=== PATIENT | female | born 1960 | race Caucasian/White ===

== ENCOUNTER → 2024-03-05 08:54 | Outpatient (REF) | payer MEDICARE, OTHER, SELFPAY | LOC: HWRAD 08:54 | PROVIDERS: ATTENDING PHYSICIAN Family Medicine | DX: K42.9 Umbilical hernia without obstruction or gangrene (principal) | CPT/HCPCS: 76705 ==

== ENCOUNTER 2024-03-12 22:35 | Inpatient (IN) | payer MEDICARE, OTHER, SELFPAY ==
[2024-03-12] VITALS (8 sets, daily range): BP systolic 94–176; BP diastolic 63–103; BMI 25.5; BMI 25.1
[2024-03-12 17:04] LABS: % Basophils 0.7 % (0-2); % Eosinophils 0.9 % (0-6); % Immature Granulocytes 0.3 % (0-0.5); % Lymphocytes 26.9 % (20.5-51.1); % Monocytes 7.8 % (1.7-9.3); % Neutrophils 63.4 % (42.2-75.2); Absolute Eosinophils 0.1 10^3/uL (0-0.7); Absolute Lymphocytes 1.6 10^3/uL (1.2-3.4); Absolute Monocytes 0.5 10^3/uL (0.1-0.6); Absolute Neutrophils 3.7 10^3/uL (1.4-6.5); Hematocrit 27.4 % (37.0-47.0); Hemoglobin 8.4 g/dL (12.0-16.0); Mean Corp Hgb Conc. 30.7 g/dL (33.0-37.0); Mean Corpuscular Hgb 25.8 pg (27.0-31.0); Nucleated Red Blood Cells % 0 %; Platelet Count 223 10^3/uL (130-400); Red Blood Cell Count 3.26 10^6/uL (4.20-5.40); Red Cell Dist. Width 21.2 % (11.5-14.5); White Blood Cell Count 5.8 10^3/uL (4.8-10.8)
[2024-03-12 17:22] LABS: AST (SGOT) 72 U/L (14-36); Albumin 3.2 g/dl (3.5-5.0); Alkaline Phosphatase 165 U/L (38-126); Blood Urea Nitrogen 8 mg/dl (7-17); Calcium 8.5 mg/dl (8.4-10.2); Carbon Dioxide 24 mmol/L (22-30); Chloride 105 mmol/L (98-107); Glucose 116 mg/dl (70-99); Lipase 30 U/L (23-300); Potassium 3.6 mmol/L (3.5-5.1); Sodium 135 mmol/L (135-145); Total Bilirubin 1.8 mg/dl (0.2-1.3); Total Protein 5.9 g/dl (6.3-8.2); eGFR > 60.00
[2024-03-12 17:30] LABS: NT-proBNP 344 pg/ml
[2024-03-12 17:40] LABS: ALT (SGPT) 24 U/L (0-35)
--- NOTE | 2024-03-12 19:03 | ED.GENMED ---
History of Present Illness
General
Chief Complaint: Swelling
Source: patient
Exam Limitations: none
Time Seen by Provider: 03/12/24 18:28
Travel History
Have you had any contact with someone who has COVID-19?: No
Do you have any symptoms of coronavirus? Fever > 100 degrees, chills, cough, shortness of breath, sore throat, loss of taste or smell, muscle aches, or headache?: No
History of Present Illness
History of Present Illness:
This is a 64 year old female that comes in with c/o abd ascites. States that this started over a moth ago. States that her and her had the stomach virus and they kept giving it back and forth to each other. Then about 1.5 weeks later she
started to feel better. Then her abd started to swell. She went to the PCP 4 weeks ago as her naval was pushing out and they thought this was a hernia. States that she was told to get US and she got the results last Monday. States that she was told
to go see her GI specialist and they couldn't see patient until July. States that her PCP called the IG specialist and they are going to see patient in March. However when the PCP called her he told them that her feet and she felt her arm was
swelling and she was told to come to the hospital. States that she has some abd discomfort with eating and drinking. States that she also had diarrhea but not sure if this is from her Lactulose. States that she had had dizziness and SOB. Denies any
fever, chills, chest pain, nausea, vomiting, headache, urinary burning.
Past History
Past History
ED Past Medical History: COPD, GERD, HTN, Hypercholesterolemia, Psychiatric and Other (back pain, IBS, cirrhosis, kidney stone, Herniated disc, Ascites, Iron Def anemia, )
ED Past Surgical History: Appendectomy, Orthopedic (Back surgery) and Other (Sinus surgery)
Social History
Tobacco: Former smoker
Alcohol: Former
Drug: None
Personal: Partner (Same sex)
Living: with family
Employment: Other
Family History
Family History: Other (Family history of Parkinson's and dementia)
Review of Systems
Review of Systems
All Other Systems: ROS reviewed and negative except as documented in HPI and ROS
Constitutional: Reports no symptoms; Denies fever or chills
EENT: Reports no symptoms
Respiratory: Reports trouble breathing; Denies cough
Cardiac: Denies chest pain
ABD/GI: Reports abdominal pain, diarrhea and other (Ascites); Denies nausea or vomiting
: Denies dysuria, frequency or urgency
Musculoskeletal: Reports no symptoms
Skin: Reports no symptoms
Neurological: Reports headache; Denies dizzy
Psychiatric: Reports no symptoms
Phy Exam
General Physical Exam
General Presentation: no apparent distress
General age: appears stated age
General Skin: warm and dry
General Habitus: elderly and poor hygiene
General Mental: alert
General Hydration: appears well hydrated
ENT Exam
ENT Exam: TM's normal, pharynx normal and neck supple
Eye Exam
Eye Exam: EOMI
Cardiovascular Exam
Cardiovascular Exam: regular rate/rhythm and normal peripheral pulses
Pulmonary Exam
Pulmonary Exam: no respiratory distress, no rales, chest non tender, no crackles, no rhonchi, no wheezing, no cough and decreased breath sounds (Right sided)
Gastrointestinal Exam
Gastrointestinal Exam: normal bowel sounds, non tender, soft, no organomegaly, no pulsatile mass and ascites
Musculoskeletal Exam
Musculoskeletal Exam: edema (feet and lower legs +2 pitting)
Skin Exam
Skin Exam: normal color, warm/dry, no rash and no petechia
Psychiatric Exam
Psychiatric Exam: normal mood/affect
Scores
Heart Failure Risk
Heart Failure Risk Score: Not Applicable
Course
Orders/Labs/Results
Orders:
Orders
03/12/24 16:58
Complete Blood Count/With Diff Urgent
Comprehensive Metabolic Panel Urgent
Lipase Urgent
NT-proBNP Urgent
03/12/24 19:02
US Abdomen Limited Urgent
Comment:
Reason For Exam: ascities check
03/12/24 19:06
Prothrombin Time Urgent
Troponin I Urgent
03/12/24 19:16
Electrocardiogram (*1) Urgent
Reason for Study: Shortness of Breath
EKG- Treatment ONCE
Abnormal Lab Results
03/12/24 03/12/24
16:58 19:06
RBC 3.26 L 10^6/uL
(4.20-5.40)
Hgb 8.4 L g/dL
(12.0-16.0)
Hct 27.4 L %
(37.0-47.0)
MCH 25.8 L pg
(27.0-31.0)
MCHC 30.7 L g/dL
(33.0-37.0)
RDW 21.2 H %
(11.5-14.5)
PT 19.0 H Sec
(11.4-14.6)
Creatinine 0.5 L mg/dL
(0.6-1.0)
Glucose 116 H mg/dl
(70-99)
Total Bilirubin 1.8 H mg/dl
(0.2-1.3)
AST 72 H U/L
(14-36)
Alkaline Phosphatase 165 H U/L
(38-126)
Total Protein 5.9 L g/dl
(6.3-8.2)
Albumin 3.2 L g/dl
(3.5-5.0)
03/12/24 16:58
03/12/24 16:58
H/H low. Glucose nonfasting. Total valdez elevation, AST elevation ( 45 in 2022), Alk phos elevation. Total protein slightly low. Albumin slightly low. PRo-BNP 344, Lipase 30, Troponin <0.012, Pt 19.0, INR, 1.61
Vital Signs
Initial and Last Documented VS:
Initial Vital Signs
Temp Pulse Resp BP Pulse Ox
97.4 F 100 20 176/86 100
03/12/24 16:45 03/12/24 16:45 03/12/24 16:45 03/12/24 16:45 03/12/24 16:45
Last Documented Vital Signs
Temp Pulse Resp BP Pulse Ox
97.4 F 92 18 125/63 97
03/12/24 16:45 03/12/24 19:45 03/12/24 19:45 03/12/24 19:00 03/12/24 19:45
MDM/Problems Addressed
Differential Diagnosis Includes:
Ascites,
MDM/Problems Addressed:
This is a 64 year old female that comes in with c/o abd swelling and not swelling in the feet and lower legs.
Will get labs, US limited and chest X-ray
Chronic conditions affecting care: Other (Ascites, )
Acute Exacerbation and/or Progression of Chronic Illness: Other (Ascites)
*Radiology
Radiology exam reviewed: radiology read reviewed (US-large volume ascites. Severe hepatic cirrhosis)
*Pulse Oximetry
Patient hypoxic: no
*Tours Hostess Interpretation
Rate: tachycardiac
Heart Rate: 104
Rhythm: sinus arrhythmia
*Critical Care Note
Total Time (30-74mins, 75-104mins- exclusive of procedures): Not Applicable
ED Attending Note
-
Portions of this chart may have been created with voice recognition software.� Occasional wrong word or��sound alike� substitutions may have occurred due to the inherent limitations of voice recognition software.
Discharge Plan
Departure
Patient Disposition: Admit
Date of Disposition: 03/12/24
Time of Disposition: 21:48
Admit to: Med/Surg
Presentation/result/management discussed w/ accepting MD/DO: Hospitalist
Patient with high blood pressure during this ER visit?: Yes
Condition: Good
Covid-19: Not Applicable
Discharge Problem:
Abdominal ascites, SOB (shortness of breath)
Prescriptions:
No Action
Epidiolex 1 UNIT solution
5 puff inhalation TIDPRN PRN (Reason: PAIN)
Patient Comments:
03/14/2019 [phone]. PT USES VAPE PEN AND CARTRIDGE
midodrine 5 MG tablet
5 mg PO DAILY
Xifaxan 550 MG tablet
550 mg PO BID
lactulose
30 ml PO TID
fluoxetine 40 mg capsule
40 mg PO DAILY
Hold Instructions: can affect your EKG, discuss restarting with cardiology
carvedilol 6.25 mg tablet
6.25 mg PO BID
Hold Instructions: discuss restarting with cardiology
donepezil 5 mg tablet
10 mg PO HS
trazodone 50 mg tablet
50 mg PO HS
Hold Instructions: discuss restarting with your doctor
tizanidine 4 mg tablet
4 mg PO BID
Patient Comments:
06/30/23: pt taking twice daily scheduled.
methylphenidate HCl 10 mg tablet
10 mg PO TID
potassium citrate 10 mEq (1,080 mg) tablet extended release
10 meq PO BID
Hold Instructions: hold while holding your HCTZ
omeprazole 20 mg capsule,delayed release(DR/EC)
20 mg PO DAILY
oxycodone 5 mg tablet
5 mg PO TID
Patient Comments:
06/30/23: patient taking TID, not QID
hydrochlorothiazide 12.5 mg tablet
12.5 mg PO BID
Hold Instructions: discuss restarting with cardiology
lurasidone 60 mg tablet
60 mg PO HS
Movantik 25 mg tablet
25 mg PO DAILY
buprenorphine HCl [Belbuca] 600 mcg film
600 mcg BUCCAL BID
Referrals:
Claudia Green PA [Family Provider] -
Interventions
Interventions:
*Risk Screen - Suicide Last Done: 03/12/24 16:45
*General Assessment Last Done: 03/12/24 16:45
*Neglect/Abuse Screening Last Done: 03/12/24 16:45
ED- Fall Risk Assessment Last Done: 03/12/24 18:31
*ED COVID-19 Vaccine History Last Done: 03/12/24 18:31
ED- Cardiac Assessment Last Done: 03/12/24 18:31
ED- Pulmonary Assessment Last Done: 03/12/24 18:31
ED-Skin Assessment Last Done: 03/12/24 18:31
Discharge Date and Time
Print Language: FRENCH
[2024-03-12 19:25] LABS: INR 1.61
[2024-03-12 19:40] LABS: Troponin I < 0.012 ng/ml
--- NOTE | 2024-03-12 22:24 | HPS.HSE ---
Family Physician
-
Family Physician: Claudia Green
Chief Complaint
-
abdominal distention
History of Present Illness
64-year-old female past medical history of alcoholic cirrhosis, esophageal varices, spinal stenosis, chronic pain, depression, COPD, GERD, presenting with abdominal ascites which started a month ago. Patient had stomach virus with vomiting and
diarrhea around a month ago which is since resolved. After the stomach was resolved she started noticing that her belly is becoming more distended since then. Over the past few days she is also noted swelling in her lower extremities and right
upper extremity. She has some shortness of breath and occasional chest tightness due to the swelling in her belly. She denies any fevers or chills. The last time she had paracentesis was 5 years ago.
Over the past month she has also had difficulty and pain with swallowing. She feels like food sometimes gets stuck in her throat and sometimes vomits up food. Difficulty occurs with solids and liquids.
Patient denies any hematemesis. She is having 1 bowel movement a day on lactulose. She denies any loose stools or dark stool or blood in the stool.
Patient did not drink alcohol or smoke in 5 years.
Medical History
Past Medical History
Past Medical History: Reports Other (alcoholic cirrhosis, esophageal varices, spinal stenosis, chronic pain, depression, COPD, GERD)
Past Surgical History: Reports Appendectomy
Social History
Tobacco: Former Smoker
Alcohol: Former
Drug: None
Family History
Family History: Not pertinent
Allergies / Home Medications
Allergies reflects when Allergies were last updated in [facility].
Home Medications with original date entered in [facility]
Allergy/Medication List:
Allergies
Allergy/AdvReac Type Severity Reaction Status Date / Time
penicillin V Allergy Unknown Verified 03/12/24 16:50
Penicillins Allergy Unknown Verified 03/12/24 16:50
Home Medications
midodrine 5 mg tablet 5 mg PO DAILY Blood Pressure 04/14/19
rifaximin 550 mg tablet (Xifaxan) 550 mg PO BID Infection 07/31/19
lactulose 10 gram/15 mL oral solution 30 ml PO TID Constipation ##0 06/29/23
buprenorphine HCl 600 mcg buccal film (Belbuca) 600 mcg buccal BID Pain 06/30/23
lurasidone 60 mg tablet 60 mg PO HS Mental Health/Anxiety 06/30/23
methylphenidate HCl 10 mg tablet 10 mg PO TID ADHD 06/30/23
naloxegol 25 mg tablet (Movantik) 25 mg PO DAILY Constipation 06/30/23
omeprazole 20 mg capsule,delayed release 20 mg PO DAILY Gastrointestinal Issue 06/30/23
oxycodone 5 mg tablet 5 mg PO Q6H Pain 06/30/23
potassium citrate 10 mEq (1,080 mg) tablet,extended release 10 meq PO DAILY Electrolyte Repletion 06/30/23
tizanidine 4 mg tablet 4 mg PO BID Muscle Spasms 06/30/23
eszopiclone 2 mg tablet 2 mg PO HS 03/12/24
Review of Systems
-
History Source: Patient
A 12 point ROS was completed and negative except as noted: Yes
Constitutional: Reports No Symptoms
EENT: Reports No Symptoms
Respiratory: Reports See HPI
Cardiac: Reports No Symptoms
Abdomen/GI: Reports See HPI
: Reports No Symptoms
Musculoskeletal: Reports No Symptoms
Skin: Reports No Symptoms
Neurological: Reports No Symptoms
Endocrine: Reports No Symptoms
Hematologic/Lymphatic: Reports No Symptoms
Psych: Reports No Symptoms
Physical Exam
Vital Signs
Vital Signs
Temp Pulse Resp BP Pulse Ox
97.4 F 96 19 128/65 95
03/12/24 16:45 03/12/24 22:00 03/12/24 22:00 03/12/24 21:00 03/12/24 22:00
Physical Exam
General: Well Developed, Well Nourished and No Apparent Distress
HEENT: NormoCephalic, Moist mucous membranes and Atraumatic
Respiratory: Clear
Cardiac: S1/S2 and Regular Rhythm; No Murmur or Rub
GI: Normal Bowel Sounds, Tender and Distended; No Organomegaly
Rectal: Deferred by Provider
Musculoskeletal: No Clubbing, No Cyanosis and No Edema
Skin: No Rash
Neuro: Nonfocal/grossly intact
Laboratory Results
-
03/12/24 16:58
03/12/24 16:58
Laboratory Results
PT 19.0 Sec (11.4-14.6) H 03/12/24 19:06
INR 1.61 03/12/24 19:06
Total Bilirubin 1.8 mg/dl (0.2-1.3) H 03/12/24 16:58
AST 72 U/L (14-36) H 03/12/24 16:58
ALT 24 U/L (0-35) 03/12/24 16:58
Alkaline Phosphatase 165 U/L (38-126) H 03/12/24 16:58
Troponin I < 0.012 ng/ml 03/12/24 19:06
Lipase 30 U/L (23-300) 03/12/24 16:58
Data Reviewed
-
Lab Data: Labs Reviewed by me
Old Records: Reviewed
Impression/Plan
-
IMPRESSION:
PLAN:
# Large volume ascites secondary to alcoholic cirrhosis
-Abdominal ultrasound shows large volume ascites
-INR 1.6
-No evidence of SBP
-IR consulted for paracentesis
-Paracentesis studies ordered
-Continue lactulose, Xifaxan
-Patient not on Lasix/spironolactone
-Check chest x-ray to evaluate for hepatic hydrothorax
-GI consulted
# Dysphagia/odynophagia possibly pharyngeal versus esophagitis
-Protonix 40 twice daily
-Prior EGD in 2020 showed grade 1 varices, mild portal hypertensive gastropathy
-GI eval
# Acute on chronic normocytic anemia
-Hemoglobin down from 11.6-8.4 over the past several months
-No evidence of nghia bleeding
History of esophageal varices
GERD
-Continue omeprazole
Spinal stenosis/chronic pain
-Continue buprenorphine, oxycodone, tizanidine
Opioid-induced constipation
-Continue Movantik
Anxiety/depression
-Continue lurasidone
ADHD
-Continue methylphenidate
Insomnia
-Continue eszopiclone
COPD
Former alcohol user
Former smoker
Full code
DVT prophylaxis�SCDs
Regular diet
[2024-03-12] MEDS: PROTONIX IV 40 MG IV (23:42)
[2024-03-12] MEDS: NSS (PRESERVATIVE FREE) 10 ML IV (23:43)
[2024-03-12] MEDS: ROXICODONE 5 MG PO (23:43)
--- NOTE | 2024-03-12 23:56 | PTCARENOTE ---
pt aaox3, reports abd pain d/t ascites. see jan re: pain management. pt ambulated to bed w/ cane. pt oriented to room w/ call rooney in reach.
[2024-03-13] VITALS (38 sets, daily range): BP systolic 16–144; BP diastolic 51–95
--- NOTE | 2024-03-13 05:03 | DOWNTIME ---
There was a [employer] Downtime on 03/13/2024 from 0100 to 03/13/2024 at 0439. Downtime documentation of patient's care, including medication administrations, has been reconciled in the electronic record per guidelines. Refer to the
patient's paper chart under the miscellaneous tab to see printed paper medication records and downtime forms.
[2024-03-13 05:10] LABS: % Basophils 0.2 % (0-2); % Eosinophils 2.8 % (0-6); % Immature Granulocytes 0.4 % (0-0.5); % Lymphocytes 36.1 % (20.5-51.1); % Monocytes 8.5 % (1.7-9.3); Absolute Eosinophils 0.1 10^3/uL (0-0.7); Absolute Lymphocytes 1.7 10^3/uL (1.2-3.4); Absolute Monocytes 0.4 10^3/uL (0.1-0.6); Absolute Neutrophils 2.4 10^3/uL (1.4-6.5); Hematocrit 22.3 % (37.0-47.0); Mean Corpuscular Hgb 25.3 pg (27.0-31.0); Mean Corpuscular Volume 84.2 fL (81.0-99.0); Mean Platelet Volume 10.4 fL (7.4-10.4); Nucleated Red Blood Cells % 0 %; Platelet Count 147 10^3/uL (130-400); Red Blood Cell Count 2.65 10^6/uL (4.20-5.40); Red Cell Dist. Width 21.1 % (11.5-14.5); White Blood Cell Count 4.6 10^3/uL (4.8-10.8)
[2024-03-13] MEDS: ROXICODONE 5 MG PO ×3 (05:16→22:56)
[2024-03-13 05:28] LABS: Hemoglobin 6.7 g/dL (12.0-16.0)
[2024-03-13 05:38] LABS: ALT (SGPT) 20 U/L (0-35); AST (SGOT) 51 U/L (14-36); Albumin 2.5 g/dl (3.5-5.0); Alkaline Phosphatase 134 U/L (38-126); Blood Urea Nitrogen 8 mg/dl (7-17); Calcium 8.2 mg/dl (8.4-10.2); Carbon Dioxide 24 mmol/L (22-30); Chloride 107 mmol/L (98-107); Estimated Creatinine Clearance 67 ml/min; Glucose 80 mg/dl (70-99); Potassium 3.6 mmol/L (3.5-5.1); Sodium 134 mmol/L (135-145); Total Bilirubin 1.9 mg/dl (0.2-1.3); Total Protein 4.9 g/dl (6.3-8.2); eGFR > 60.00
--- NOTE | 2024-03-13 06:11 | W.PN.UPDATE ---
Update Note
Progress Note Update
hgb 6.7, no active bleeding, BP 121/70 HR 80. Patient seen and evaluated. Stated feeling weak, but denies any stomach pain, active bleeding, Chest pain or shortness of breath. Blood consent explained, verbalized understanding. Stat Type and screen,
Will transfuse 1 unit of blood. H/H at noon, check heme stool, GI consult in place.
--- NOTE | 2024-03-13 07:50 | W.PN.HOSP.TC ---
Today's Communication/Plan
-
N.p.o.
Furosemide
IR consult
GI consult
Transfuse
Anemia labs
Check magnesium
Assessment / Plan
Assessment / Plan
Gen-AAOx3, NAD
HEENT-NC, AT, anicteric, clear oral mm
Neck-supple
CV-reg, no M, +S1/S2
Lungs-clear B/L
Abd-soft, NT, distended abdomen with fluid wave
Ext-1+ bilateral ankle edema
Musculoskeletal-no cyanosis, clubbing
Skin-warm and dry
Neuro-grossly non-focal
Psych-calm, cooperative
Acute on chronic anemia -hemoglobin down to 6.7 this morning, 8.4 yesterday. Baseline hemoglobin unknown, hemoglobin was 11.6 in June. Etiology of acute anemia unclear, but high concern for subacute GI blood loss anemia. She does have melena.
Rectal exam not performed on admission.
Baseline chronic anemia probably related to chronic inflammation, cirrhosis, etc.
MCV is normal. Check anemia labs.
Symptomatic ascites -due to decompensated hepatic cirrhosis. Abdominal ultrasound confirms large volume ascites, severe hepatic cirrhosis. Consult IR for paracentesis. Check fluid analysis. Start diuretics. She is not on diuretics at home.
Dysphagia -solid and liquid food. Keep n.p.o., consult GI. Will need EGD, especially in light of known esophageal varices.
Alcoholic cirrhosis -continue lactulose, rifaximin. She normally follows up with Dr. Rand, however has not seen her in over a year as she was busy taking care of her at home.
Leukopenia -likely related to cirrhosis. Monitor for now.
Hyponatremia -likely due to cirrhosis. Sodium 134. Fluid restriction.
History of esophageal varices -grade 1. Noted on EGD September 2021. She is overdue for repeat EGD.
Portal hypertensive gastropathy
QT prolongation -potassium is normal. Check magnesium. QTc 495 ms on EKG.
Chronic pain syndrome/chronic opiate dependence
COPD without exacerbation
History of alcohol use disorder -has been sober for the past 5 years.
History of colon polyps
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 Last colonoscopy was September 2021. It showed nonbleeding internal hemorrhoids, diverticulosis in the sigmoid colon, 2 mm rectal polyp. Diffuse nonbleeding colonic angiodysplastic
lesions in the cecum and ascending colon. Small lipoma in the ascending colon.
Full code
Anticipated Discharge: > 48 hours
Subjective/Interval History
-
Date of Service: March 13, 2024
Patient seen and examined. Complaining of abdominal distention, sensation of fullness.
Objective Data
-
Labs:
Laboratory Results
03/13/24 03/13/24
04:58 12:05
WBC 4.6 L
Hgb 6.7 L* D Pending
Hct 22.3 L Pending
Plt Count 147 D
Sodium 134 L
Potassium 3.6
Chloride 107
Carbon Dioxide 24
BUN 8
Creatinine 0.5 L
Glucose 80
Calcium 8.2 L
Total Bilirubin 1.9 H
AST 51 H
ALT 20
Alkaline Phosphatase 134 H
Vital Signs:
Vital Signs
Temp Pulse Resp BP Pulse Ox
98.4 F 88 17 121/70 96
03/13/24 04:50 03/13/24 04:50 03/13/24 04:50 03/13/24 04:50 03/13/24 04:50
Review of Systems
-
History Source: Patient
All other systems: Reviewed and negative
[2024-03-13] MEDS: XIFAXAN PO (08:00)
[2024-03-13] MEDS: DUPHALAC/CHRONULAC PO (08:00)
--- NOTE | 2024-03-13 08:05 | PTCARENOTE ---
Patient resting in bed this morning. Seen by Dr. Grya in to see the patient. Patient to be kept NPO until seen by GI. To receive one unit of PRBC's this morning. Await GI/IR evaluation.
[2024-03-13 08:15] LABS: Reticulocyte Count 3.1 % (0.4-2.8)
[2024-03-13 08:16] LABS: Iron 40 ug/dl (37-170); Magnesium 1.8 mg/dl (1.6-2.3)
[2024-03-13 08:28] LABS: Percent Saturation 13 % (20-50); Total Iron Binding Capacity 292 ug/dl (265-497)
--- NOTE | 2024-03-13 08:44 | CON.GI ---
Consultation
-
Date/Time Consultation Requested: 03/13/24
Date/Time Consultation Performed: 03/13/24
Requesting Provider: Dr. Gray
Performing Provider: Dr. Nassar
Reason for Consultation: Decompensated cirrhosis, anemia
Medical History
Chief Complaint / HPI
Chief Complaint: Ascites, melena
History of Present Illness:
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
edema. She reports that both her and her had some self-limiting GI illness, after which she noted the worsening in abdominal distension and LE edema, which has become progessively worse over the last month. She previously had ascites requiring
paracentesis in 2019, but has not required any since that time. She reports compliance with all medications-- including lactulose, rifaximin, lasix, no longer on Coreg. Of note, she is on midodrine-- does not recall when this was started, she does
not recall being told she suffers from hypotension. She was found to be anemic on arrival with a hemoglobin of 8.4, with repeat this morning 6.7. Her previous hemoglobin was 06/30/23 was 11.6, MCV 84.2, plt 147, PT 19/INR 1.6, Na 134, K 3.6, Cl 107,
CO2 24, BUN 8/Cr. 0.5, Tbili 1.9. She reports having 'dark' stool at home, she thinks it has been black. Denies any pepto bismol or supplemental iron. She has been sober for the last 5 years. Denies any encephalopathy. Admits to 1 BM per day--
struggles with drug-induced constipation, on Movantik.
She was previously put on Coreg for secondary prophylaxis for esophageal varices, she was hospitalized in June for worsening fatigue and syncope, found to have prolonged QT interval and at that time, both her Coreg and hydrochlorothiazide were
held. Not resumed following her close follow-up with cardiology due to her her symptoms, they also mention that both buprenorphine and Latuda could also be the culprits of her prolonged QT interval.
Her last EGD was in September [address] Rand, was noted to have Grade 1 EV which were not amenable to banding, as well as PHG. She has had EGDs in the past with GAVE treated with APC, but did not require this on most recent endoscopy. She was last
banded in August 2019. Unclear if varices vs. GAVE were source of GI Bleeding at that time.
She also has a history of rectal neuroendocrine tumor on colonoscopy in 03/2021, path with extension to specimen edge of bx (2 mm rectal polyp), repeat 6 months; noted to have a few small nonbleeding AVMs in the cecum and ascending colon, given a 3
year recall, due now.
Prior GI Workup
04/2022 Abd US hepatomegaly with coarsened echotexture nodular configuration of the liver. No discrete liver lesion. No ascites. No gallstones.
08/2021 MRI AP with contrast liver cirrhosis, no liver lesions, mild splenomegaly, mild CBD dilation 10mm without stricture or filling defect.
02/19/21 CTAP IV and oral contrast revealed cirrhosis, moderate fecal material
09/[address] Rand Grade I EV not amenable to banding, PHTN gastropathy, normal duodenum. Recall 2-3yrs
01/2021 EGD Grade 1 esophageal varices, gastric antral ectasia without bleeding treated with APC, PHG. Recall 6 month.
09/13/19 EGD with Grade III EV s/p band ligation x2, PHG, 3 small AVMs with active bleeding that required APC.
03/28/19- paracentesis 5800ml removed 04/25/19- 2800 ml removed
01/20/19 Mitochondrial 2.6, SLA 2.5, LKM 1.4, hepatitis neg,
07/[address] Rand sigmoid tics, IH, 2mm rectal polyp on path hyperplastic, few nonbleeding AVMs in cecum and AC, small AC lipoma. Recall 3yrs.
03/[address] Rand IH, TI normal, melanosis coli, 4mm ascending colon tubular adenomatous polyp s/p hot snare clip and tattoo, 2mm rectal polyp on path neuroendocrine tumor grade I with extension to specimen edge of bx. Recall 6months.
11/2016- Colonoscopy multiple polyps. looping in colon, redundant colon, non-bleeding hemorrhoids, medium lipoma in distal ascending colon bx hyperplastic and tubular adenoma.
Past Medical History
Past Medical History: Arrhythmias, CHF, HTN, Hypercholesterolemia, Hypothyroidism, NIDDM, Valvular Disease and Other
Social History
Alcohol: Former
Family History
Family History: Reviewed & Not Pertinent
Allergies / Home Medications
Allergy/AdvReac Type Severity Reaction Status Date / Time
penicillin V Allergy Unknown Verified 03/12/24 16:50
Penicillins Allergy Unknown Verified 03/12/24 16:50
�Medication �Instructions �Recorded
midodrine 5 mg tablet 5 mg PO DAILY Blood Pressure 04/14/19
rifaximin 550 mg tablet (Xifaxan) 550 mg PO BID Infection 07/31/19
lactulose 10 gram/15 mL oral 30 ml PO TID Constipation ##0 06/29/23
solution
buprenorphine HCl 600 mcg buccal 600 mcg buccal BID Pain 06/30/23
film (Belbuca)
lurasidone 60 mg tablet 60 mg PO HS Mental Health/Anxiety 06/30/23
methylphenidate HCl 10 mg tablet 10 mg PO TID ADHD 06/30/23
naloxegol 25 mg tablet (Movantik) 25 mg PO DAILY Constipation 06/30/23
omeprazole 20 mg capsule,delayed 20 mg PO DAILY Gastrointestinal 06/30/23
release Issue
oxycodone 5 mg tablet 5 mg PO Q6H Pain 06/30/23
potassium citrate 10 mEq (1,080 10 meq PO DAILY Electrolyte 06/30/23
mg) tablet,extended release Repletion
tizanidine 4 mg tablet 4 mg PO BID Muscle Spasms 06/30/23
eszopiclone 2 mg tablet 2 mg PO HS 03/12/24
Review of Systems
-
All other systems: A 12 pt ROS was Negative except as stated above in HPI
Vital Signs
Temp Pulse Resp BP Pulse Ox
98.9 F 88 16 127/74 97
03/13/24 08:31 03/13/24 08:31 03/13/24 08:31 03/13/24 08:31 03/13/24 08:13
Physical Exam
Exam
General: No Apparent Distress and Comfortable
HEENT: Other (conjunctival pallor)
Respiratory: Clear and Non Labored Respirations
Cardiac: S1/S2 and Regular Rhythm
Breast: Deferred by me
GI: Soft, Non Tender and Distended
Rectal: Other (No stool in rectal vault, scant flecks of light brown stool )
Skin: Warm and Dry
Neuro: AO x 3, Nonfocal/Grossly Intact and Other (No asterixes or tongue fasciculations)
Psych: Calm
Results
WBC 4.6 10^3/uL (4.8-10.8) L 03/13/24 04:58
Hgb 6.7 g/dL (12.0-16.0) L* D 03/13/24 04:58
Hct 22.3 % (37.0-47.0) L 03/13/24 04:58
MCV 84.2 fL (81.0-99.0) 03/13/24 04:58
Plt Count 147 10^3/uL (130-400) D 03/13/24 04:58
Absolute Neuts (auto) 2.4 10^3/uL (1.4-6.5) 03/13/24 04:58
PT 19.0 Sec (11.4-14.6) H 03/12/24 19:06
INR 1.61 03/12/24 19:06
Sodium 134 mmol/L (135-145) L 03/13/24 04:58
Potassium 3.6 mmol/L (3.5-5.1) 03/13/24 04:58
Chloride 107 mmol/L (98-107) 03/13/24 04:58
Carbon Dioxide 24 mmol/L (22-30) 03/13/24 04:58
BUN 8 mg/dl (7-17) 03/13/24 04:58
Creatinine 0.5 mg/dL (0.6-1.0) L 03/13/24 04:58
Calcium 8.2 mg/dl (8.4-10.2) L 03/13/24 04:58
Total Bilirubin 1.9 mg/dl (0.2-1.3) H 03/13/24 04:58
AST 51 U/L (14-36) H 03/13/24 04:58
ALT 20 U/L (0-35) 03/13/24 04:58
Alkaline Phosphatase 134 U/L (38-126) H 03/13/24 04:58
Lipase 30 U/L (23-300) 03/12/24 16:58
Diagnostic Image Results:
Prior GI Procedures:
EGD:
Colonoscopy:
Assessment / Plan
-
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
be anemic.
#Anemia-- reports melena, though, none on rectal exam
-history of prior bleeding esophageal varices as well as GAVE, PHG, Colonic AVMs
-in setting of ascites and prior GI bleeding, recommend SBP prophylaxis-- discussed PCN allergy with pharmacy, she has tolerated cephalosporins in the past, will start on Cefepime 2g daily
-Start Octreotide gtt, no signs of active bleeding, okay for IV PPI; must be transferred to monitored bed to receive octreotide gtt, she is going to be coming down for EGD now, will plan to transfer to monitored bed if evidence of varices
-Hgb 8.4 --> 6.7, transfused, pending repeat
-maintain active T&C, 2 large bore peripheral gauge IVs
-NPO for EGD today
#Decompensated EtoH Cirrhosis c/b hepatic encephalopathy, PHG, esophageal varices, abdominal ascites
-MELD 3.0 = 18
-Ascites in 2019 requiring paracentesis, now with recurrence
-plan for IR paracentesis today-- will review ascitic fluid studies and calculate SAAG, need to rule out SBP; depending on fluid studies, may require indefinite SBP prophylaxis
-Abdominal US w/ cirrhosis, large-volume ascites-- vasculature not commented on. Need to obtain additional imaging to rule PVT
-Previously did not require diuretics-- agree with initiation of 40mg lasix; should ideally be on aladactone as well, will see how she tolerates lasix
-Continue lactulose and rifaximin
-will check AFP for HCC screening with AM labs
-no role for checking ammonia
-Daily MELD-3.0 labs
#Hx Rectal Neuroendocrine Ca
#Hx Colon polyps
-Depending on hemoglobin and findings on EGD, will discuss if inpatient evaluation is necessary vs. follow-up with Dr. Rand for surveillance colonoscopy in the outpatient setting
Data Reviewed
-
Radiology: Report Reviewed by me
Ultrasound: Report Reviewed by me
Old Records: Reviewed
-
-
Thank you for consultation and allowing me to participate in the patient's care. Please call the windows application developer GI physician during the after hours with any questions or concerns.
--- NOTE | 2024-03-13 09:30 | PTCARENOTE ---
Blood transfusing as ordered, patient transported to IR for paracentesis.
[2024-03-13 09:39] LABS: Ferritin 9.7 ng/ml (11.1-264.0)
[2024-03-13 10:10] LABS: Folate 5.7 ng/ml (2.76-20); Vitamin B12 932 pg/ml (239-931)
--- NOTE | 2024-03-13 10:46 | PTCARENOTE ---
Patient returned from IR after paracentesis. Band aid dry and intact right lateral abdomen, VSS. Blood transfused, remains NPO x meds for endoscopy.
[2024-03-13] MEDS: LASIX 40 MG PO (10:48)
[2024-03-13] MEDS: ZANAFLEX 4 MG PO (10:49)
[2024-03-13] MEDS: RITALIN 10 MG PO ×2 (10:49→16:26)
[2024-03-13] MEDS: NSS (PRESERVATIVE FREE) 10 ML IV ×2 (10:50→20:01)
[2024-03-13] MEDS: ProAmatine 5 MG PO (10:50)
[2024-03-13] MEDS: PROTONIX IV 40 MG IV ×2 (10:50→20:01)
[2024-03-13 10:55] LABS: Body Fluid Mononuclear 68.5 %; Body Fluid Polymorphonuclear 31.5 %; Body Fluid WBC 54 /CUMM
[2024-03-13 10:57] LABS: Body Fluid Second Tech AMA
[2024-03-13 11:01] LABS: Body Fluid Albumin < 1.0 g/dl; Body Fluid Amylase < 30 U/L; Body Fluid LDH < 90 U/L; Body Fluid Protein < 2.0 g/dl
[2024-03-13] MEDS: RITALIN PO (12:00)
[2024-03-13] MEDS: ROXICODONE PO (12:00)
--- NOTE | 2024-03-13 13:06 | PTCARENOTE ---
Report given to GI lab, patient sent with transport for EGD.
--- NOTE | 2024-03-13 15:41 | CM ---
Reviewed chart. Met with Mrs. Bass to review discharge plans. She states prior to admission she resides with her spouse in a two story home with steps and wheelchair ramp to enter. She states her bedroom/full bathroom is on the first floor. She
states prior to admission she was ambulating with a walker. She states she has a stair glide to get to the second floor. She has a walker, single point cane and shower chair at home. She states she has a prescription plan and uses [facility].
Will need to see her current functional level to see if she will have any skilled care needs. Medical work-up in progress. The discharge plan is to return home with [facility] when medically stable.
[2024-03-13 15:43] LABS: Hematocrit 30.7 % (37.0-47.0)
[2024-03-13] MEDS: SANDOSTATIN 500.600000000000023 MCG IV (15:44)
[2024-03-13 15:45] LABS: Hemoglobin 9.8 g/dL (12.0-16.0)
--- NOTE | 2024-03-13 16:13 | PTCARENOTE ---
Patient returned to her room after EGD. Placed on telemetry as ordered, in SR. IV sandostatin infusing as ordered via new #22 IV placed right hand. Monitoring post op VS, patient eating clear liquid tray, call rooney in reach.
[2024-03-13] MEDS: DUPHALAC/CHRONULAC 20 GRAMS PO ×2 (16:25→22:56)
[2024-03-13] MEDS: MAXIPIME 2000 MG IV ×2 (16:26→22:56)
[2024-03-13] MEDS: STERILE WATER FOR INJECTION 10 ML IV ×2 (16:26→22:56)
[2024-03-13] MEDS: FLUSH (NSS) 2 FLUSH IV (16:27)
[2024-03-13] MEDS: XIFAXAN 550 MG PO (20:00)
[2024-03-13] MEDS: ZANAFLEX PO (20:01)
[2024-03-13] MEDS: AMBIEN PO (22:56)
[2024-03-13] MEDS: LATUDA 60 MG PO (22:56)
[2024-03-14] VITALS (14 sets, daily range): BP systolic 72–129; BP diastolic 45–77
[2024-03-14] MEDS: SANDOSTATIN 500.600000000000023 MCG IV ×2 (04:30→16:58)
[2024-03-14 05:13] LABS: % Basophils 0.7 % (0-2); % Eosinophils 3.3 % (0-6); % Immature Granulocytes 0.2 % (0-0.5); % Monocytes 6.9 % (1.7-9.3); % Neutrophils 48.9 % (42.2-75.2); Absolute Eosinophils 0.1 10^3/uL (0-0.7); Absolute Lymphocytes 1.7 10^3/uL (1.2-3.4); Absolute Monocytes 0.3 10^3/uL (0.1-0.6); Absolute Neutrophils 2.1 10^3/uL (1.4-6.5); Hemoglobin 8.4 g/dL (12.0-16.0); Mean Corp Hgb Conc. 32.3 g/dL (33.0-37.0); Mean Corpuscular Volume 80.5 fL (81.0-99.0); Mean Platelet Volume 11.1 fL (7.4-10.4); Nucleated Red Blood Cells % 0 %; Platelet Count 139 10^3/uL (130-400); Red Blood Cell Count 3.23 10^6/uL (4.20-5.40); Red Cell Dist. Width 20.4 % (11.5-14.5); White Blood Cell Count 4.2 10^3/uL (4.8-10.8)
[2024-03-14] MEDS: ROXICODONE 5 MG PO ×3 (05:14→17:35)
[2024-03-14 05:35] LABS: ALT (SGPT) 19 U/L (0-35); AST (SGOT) 42 U/L (14-36); Albumin 2.3 g/dl (3.5-5.0); Alkaline Phosphatase 116 U/L (38-126); Blood Urea Nitrogen 7 mg/dl (7-17); Calcium 7.9 mg/dl (8.4-10.2); Carbon Dioxide 26 mmol/L (22-30); Chloride 105 mmol/L (98-107); Estimated Creatinine Clearance 67 ml/min; Glucose 87 mg/dl (70-99); Sodium 133 mmol/L (135-145); Total Bilirubin 2.1 mg/dl (0.2-1.3); Total Protein 4.6 g/dl (6.3-8.2); eGFR > 60.00
[2024-03-14 06:10] LABS: AFP Male/Tumor Marker 2.08 ng/ml
--- NOTE | 2024-03-14 08:09 | W.PN.HOSP.TC ---
Today's Communication/Plan
-
Advance diet
Replete potassium
Monitor hemoglobin
Octreotide, Protonix
Assessment / Plan
Assessment / Plan
Gen-AAOx3, NAD
HEENT-NC, AT, anicteric, clear oral mm
Neck-supple
CV-reg, no M, +S1/S2
Lungs-clear B/L
Abd-soft, NT, less distended today
Ext-1+ bilateral ankle edema
Musculoskeletal-no cyanosis, clubbing
Skin-warm and dry
Neuro-grossly non-focal
Psych-calm, cooperative
Acute on chronic anemia -hemoglobin improved to 8.4 after 1 unit of transfusion on 03/13. Etiology of acute anemia is likely acute blood loss anemia due to GI bleed. Bleeding portal hypertensive gastropathy noted on EGD. Monitor hemoglobin.
Octreotide infusion started 03/13. Continue IV Protonix.
She has not had a bowel movement so far in the hospital but has also not been eating.
Symptomatic ascites -due to decompensated hepatic cirrhosis. Paracentesis completed on 03/13 by IR, 4.2 L of fluid removed. No signs of SBP.
Furosemide initiated. Add spironolactone if blood pressure tolerates.
Dysphagia -suspect functional etiology. No obvious source of dysphagia noted on EGD. Advance diet today, discussed with GI.
Alcoholic cirrhosis -continue lactulose, rifaximin. She normally follows up with Dr. Rand, however has not seen her in over a year as she was busy taking care of her at home.
Leukopenia -likely related to cirrhosis. Monitor for now.
Hyponatremia -likely due to cirrhosis. Sodium 133. Fluid restriction. Check TSH.
Hypokalemia -replete orally. Magnesium 1.7.
History of esophageal varices -grade 1. Small esophageal varices noted on EGD from 03/13. Unable to be banded.
Portal hypertensive gastropathy
QT prolongation -potassium is normal. Check magnesium. QTc 495 ms on EKG.
Chronic pain syndrome/chronic opiate dependence
COPD without exacerbation
History of alcohol use disorder -has been sober for the past 5 years.
History of colon polyps
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 Last colonoscopy was September 2021. It showed nonbleeding internal hemorrhoids, diverticulosis in the sigmoid colon, 2 mm rectal polyp. Diffuse nonbleeding colonic angiodysplastic
lesions in the cecum and ascending colon. Small lipoma in the ascending colon.
Full code
Anticipated Discharge: > 48 hours
Subjective/Interval History
-
Date of Service: March 14, 2024
Patient seen and examined. No complaints today.
Objective Data
-
Labs:
Laboratory Results
03/14/24
04:40
WBC 4.2 L
Hgb 8.4 L
Hct 26.0 L
Plt Count 139
Sodium 133 L
Potassium 3.0 L
Chloride 105
Carbon Dioxide 26
BUN 7
Creatinine 0.6
Glucose 87
Calcium 7.9 L
Total Bilirubin 2.1 H
AST 42 H
ALT 19
Alkaline Phosphatase 116
Vital Signs:
Vital Signs
Temp Pulse Resp BP Pulse Ox
98.2 F 71 18 120/68 98
03/13/24 23:18 03/13/24 23:00 03/13/24 23:18 03/13/24 23:00 03/13/24 23:18
I&O
03/13/24 03/14/24 03/15/24
06:59 06:59 06:59
Intake Total 1370 / 1370
Output Total 550 / 550
Balance 820 / 820
Review of Systems
-
History Source: Patient
All other systems: Reviewed and negative
[2024-03-14 08:14] LABS: Magnesium 1.7 mg/dl (1.6-2.3)
[2024-03-14] MEDS: DUPHALAC/CHRONULAC 20 GRAMS PO ×3 (09:39→23:12)
[2024-03-14] MEDS: PROTONIX IV 40 MG IV ×2 (09:40→20:27)
[2024-03-14] MEDS: NSS (PRESERVATIVE FREE) 10 ML IV ×2 (09:42→20:27)
[2024-03-14] MEDS: ZANAFLEX 4 MG PO ×2 (09:55→20:27)
[2024-03-14] MEDS: ProAmatine 5 MG PO (09:55)
[2024-03-14] MEDS: RITALIN 10 MG PO ×3 (09:55→16:49)
[2024-03-14] MEDS: KCL 40 MEQ PO (09:56)
[2024-03-14] MEDS: LASIX 40 MG PO (09:56)
[2024-03-14] MEDS: XIFAXAN 550 MG PO ×2 (09:56→20:27)
[2024-03-14] MEDS: MAXIPIME 2000 MG IV ×2 (10:31→16:47)
[2024-03-14] MEDS: STERILE WATER FOR INJECTION 10 ML IV ×2 (10:31→16:47)
--- NOTE | 2024-03-14 12:20 | W.PN.GI.CBS2 ---
Today's Communication / Plan
-
Continue Octreotide gtt, PPI, Cefepime for SBP prophylaxis. Monitor hemoglobin. Advance diet.
Assessment / Plan
-
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
be anemic.
#Anemia-- 2/2 bleeding PHG
-s/p EGD on 03/13: actively oozing PHG in fundus treated with APC. mild nonbleeding GAVE. small grade 1 EV, nonobstructing schatzki ring, small HH
-Hgb 8.4 this morning. no episodes of bleeding overnight.
-Continue octreotide gtt day 2/3, SBP ppx day 2, PPI
-okay to advance diet, 2g salt restriction, 2L fluid restriction
#Decompensated EtoH Cirrhosis c/b hepatic encephalopathy, PHG, esophageal varices, abdominal ascites
-MELD 3.0 = 20
-Ascites in 2019 requiring paracentesis, now with recurrence; ascitic fluid study with high SAAG, low protein c/w portal HTN. No evidence of SBP. Does not meet criteria for primary SBP prophylaxis
-started on Lasix, if BP tolerates, will start on Aldactone 50 mg daily
-Abdominal US w/ cirrhosis, large-volume ascites-- vasculature not commented on. Need to obtain additional imaging to rule PVT
-Previously did not require diuretics-- agree with initiation of 40mg lasix; should ideally be on aladactone as well, will see how she
-Continue lactulose and rifaximin
-EV- grade 1 EV on EGD, not amenable to banding. Recommend reintroduction of Carvediol as outpatient to see if she tolerates it (was being used along with HCTZ, difficult to say what was causing her symptoms)
-AFP 2.08- needs repeat q6 months for HCC screening
-no role for checking ammonia
-Daily MELD-3.0 labs
#Dsphagia- functional vs. mechanical
-nonobstructing schatzki ring and small HH on EGD-- discussed with patient that would not recommend dilation given esophageal varices
-discussed lifestyle/dietary modifications, patient expressed understanding
#Hx Rectal Neuroendocrine Ca
#Hx Colon polyps
-Outpatient follow-up [facility] Dr. Rand for surveillance colonoscopy
Subjective
Subjective
Date of Service: March 14, 2024
Patient seen in follow-up this morning, reports feeling much better today. No longer having discomfort in abdomen or distension following IR paracentesis. She underwent EGD with small grade 1 EV, not amenable to banding, small schatzki ring, small
HH, oozing PHG, mild GAVE; oozing PHG in fundus treated with APC with adequate hemostasis. She is currently on PPI, Octreotide gtt and Cefepime for SBP prophylaxis.
Objective
Data Reviewed
Laboratory Data:
Laboratory Results
03/14/24 04:40
03/14/24 04:40
Laboratory Results
PT 19.0 Sec (11.4-14.6) H 03/12/24 19:06
INR 1.61 03/12/24 19:06
Magnesium 1.7 mg/dl (1.6-2.3) 03/14/24 04:40
Total Bilirubin 2.1 mg/dl (0.2-1.3) H 03/14/24 04:40
AST 42 U/L (14-36) H 03/14/24 04:40
ALT 19 U/L (0-35) 03/14/24 04:40
Alkaline Phosphatase 116 U/L (38-126) 03/14/24 04:40
Lipase 30 U/L (23-300) 03/12/24 16:58
Vital Signs and I&O:
Vital Signs
Temp Pulse Resp BP Pulse Ox
99.1 F 78 16 128/74 94
03/14/24 07:00 03/14/24 12:00 03/14/24 07:00 03/14/24 09:55 03/14/24 07:00
I&O
03/13/24 03/14/24 03/15/24
06:59 06:59 06:59
Intake Total 1370 / 1370
Output Total 550 / 550
Balance 820 / 820
Physical Exam
Physical Exam
HEENT: Anicteric and Moist mucous membranes
Cardiology: Normal Sinus Rhythm, S1 and S2
Pulmonary: Clear
GI: Soft, Distended (mild distension ), Non Tender and Normal Bowel Sounds
Extremities: No Edema
Neuro: Non Focal
No asterixes
[2024-03-14 19:00] LABS: Hepatitis C Antibody Negative (Negative)
[2024-03-14] MEDS: KCL 20 MEQ PO (20:26)
--- NOTE | 2024-03-14 21:30 | PTCARENOTE ---
Assumed care of patient at change of shift. Patient reports having a poor appetite and unable to swallow food. She had difficulty eating dinner and states 'I had to spit it out. I was gagging.' No issues w/ swallowing pills, oral Potassium given in
apple sauce. Tele remains SR. Call rooney in reach.
[2024-03-14] MEDS: AMBIEN PO (22:54)
[2024-03-14] MEDS: NSS 500 IV (23:12)
[2024-03-14] MEDS: LATUDA 60 MG PO (23:12)
[2024-03-14] MEDS: MYLICON 80 MG PO (23:12)
[2024-03-15] VITALS (16 sets, daily range): BP systolic 76–108; BP diastolic 40–69; BMI 23.8
[2024-03-15] MEDS: ROXICODONE PO (00:18)
[2024-03-15] MEDS: MAXIPIME 2000 MG IV ×3 (00:28→17:02)
[2024-03-15] MEDS: STERILE WATER FOR INJECTION 10 ML IV ×3 (00:29→17:02)
--- NOTE | 2024-03-15 01:28 | PTCARENOTE ---
@22:42 HS vitals obtained, patient laying flat in bed. Bp on right arm 72/48 and left arm BP 75/45. Manual blood pressure performed w/ a result of 76/42. Patient denies any dizziness, but does c/o a headache described as 'dull/ache'. This RN
instructed patient to remain in bed until further notice, and elevated legs. Saundra AGUIAR notified, and orders obtained/carried out for NSS 500ml--see MAR for details. Blood pressure reevaluated post IV fluid administration BP 86/40. Denies any
lightheadedness or dizziness and remains laying in bed. Call rooney in reach, and pt can make her needs known.
[2024-03-15 02:42] LABS: % Basophils 0.6 % (0-2); % Lymphocytes 33.8 % (20.5-51.1); % Monocytes 8.7 % (1.7-9.3); % Neutrophils 51.9 % (42.2-75.2); Absolute Eosinophils 0.2 10^3/uL (0-0.7); Absolute Lymphocytes 1.2 10^3/uL (1.2-3.4); Absolute Monocytes 0.3 10^3/uL (0.1-0.6); Absolute Neutrophils 1.8 10^3/uL (1.4-6.5); Hematocrit 23.2 % (37.0-47.0); Hemoglobin 7.5 g/dL (12.0-16.0); Mean Corp Hgb Conc. 32.3 g/dL (33.0-37.0); Mean Corpuscular Volume 80.6 fL (81.0-99.0); Mean Platelet Volume 10.4 fL (7.4-10.4); Nucleated Red Blood Cells % 0 %; Platelet Count 110 10^3/uL (130-400); Red Blood Cell Count 2.88 10^6/uL (4.20-5.40); White Blood Cell Count 3.4 10^3/uL (4.8-10.8)
[2024-03-15 03:05] LABS: ALT (SGPT) 17 U/L (0-35); AST (SGOT) 66 U/L (14-36); Albumin 1.8 g/dl (3.5-5.0); Alkaline Phosphatase 87 U/L (38-126); Blood Urea Nitrogen 6 mg/dl (7-17); Calcium 7.4 mg/dl (8.4-10.2); Carbon Dioxide 25 mmol/L (22-30); Chloride 102 mmol/L (98-107); Estimated Creatinine Clearance 67 ml/min; Glucose 110 mg/dl (70-99); Potassium 3.3 mmol/L (3.5-5.1); Sodium 132 mmol/L (135-145); Total Bilirubin 1.2 mg/dl (0.2-1.3); Total Protein 3.9 g/dl (6.3-8.2); eGFR > 60.00
[2024-03-15 04:18] LABS: Anisocytosis 2+; Normal RBC Morphology No
[2024-03-15 04:20] LABS: Acanthocytes 1+; Hypochromasia 1+; Ovalocytes 1+; Target Cells 1+; Tear Drop Red Blood Cells Occasional
[2024-03-15 04:22] LABS: Poikilocytosis 1+; Schistocytes Occasional
[2024-03-15] MEDS: SANDOSTATIN 500.600000000000023 MCG IV ×2 (06:14→19:01)
--- NOTE | 2024-03-15 07:50 | W.PN.HOSP.TC ---
Today's Communication/Plan
-
Out of bed to chair
Recheck CBC
Increase KCl dose
Change diet to soft, bite sized
Recheck magnesium
Increase midodrine
Daily weights
Assessment / Plan
Assessment / Plan
Gen-AAOx3, NAD
HEENT-NC, AT, anicteric, clear oral mm
Neck-supple
CV-reg, no M, +S1/S2
Lungs-clear B/L
Abd-soft, NT, less distended today
Ext-1+ bilateral ankle edema
Musculoskeletal-no cyanosis, clubbing
Skin-warm and dry
Neuro-grossly non-focal
Psych-calm, cooperative
Acute on chronic anemia -hemoglobin improved to 8.4 after 1 unit of transfusion on 03/13, hemoglobin down to 7.5 earlier this morning. Has not had any bowel movement so far in the hospital. Recheck hemoglobin after she sits up for couple hours to
rule out positional anemia. Etiology of acute anemia is likely acute blood loss anemia due to GI bleed. Bleeding portal hypertensive gastropathy noted on EGD.
Octreotide infusion started 03/13, stop date 03/16. Continue IV Protonix.
Symptomatic ascites -due to decompensated hepatic cirrhosis. Paracentesis completed on 03/13 by IR, 4.2 L of fluid removed. No signs of SBP.
Furosemide initiated. Add spironolactone if blood pressure tolerates. Currently she is hypotensive however.
Dysphagia -possibly due to nonobstructing Schatzki's ring as noted on EGD. Not dilated due to concern over bleeding from esophageal varices. Diet changed to soft, bite sized. Would continue on discharge. Discussed with patient. She was able to
tolerate soft foods yesterday such as bananas, pancakes, yogurt.
Alcoholic cirrhosis -continue lactulose, rifaximin. She normally follows up with Dr. Rand, however has not seen her in over a year as she was busy taking care of her at home.
Pancytopenia/leukopenia -likely related to cirrhosis. Monitor for now.
Hyponatremia -likely due to cirrhosis, hypotension induced ADH excess. Will try to improve blood pressure, increase midodrine dose.
Hypotension -most likely due to cirrhosis. Increase midodrine to 5 mg 3 times daily. She has no symptoms of hypotension.
Hypokalemia -will increase dose of KCl. Recheck magnesium.
History of esophageal varices -grade 1. Small esophageal varices noted on EGD from 03/13. Too small to be banded.
Portal hypertensive gastropathy
QT prolongation
Chronic pain syndrome/chronic opiate dependence
COPD without exacerbation
History of alcohol use disorder -has been sober for the past 5 years.
History of colon polyps
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 Last colonoscopy was September 2021. It showed nonbleeding internal hemorrhoids, diverticulosis in the sigmoid colon, 2 mm rectal polyp. Diffuse nonbleeding colonic angiodysplastic
lesions in the cecum and ascending colon. Small lipoma in the ascending colon.
Full code
Anticipated Discharge: 24 - 48 hours
Subjective/Interval History
-
Date of Service: March 15, 2024
Patient seen and examined. No complaints currently. Denies lightheadedness.
Objective Data
-
Labs:
Laboratory Results
03/15/24 03/15/24
02:35 07:32
WBC 3.4 L Pending
Hgb 7.5 L Pending
Hct 23.2 L Pending
Plt Count 110 L D Pending
Sodium 132 L
Potassium 3.3 L
Chloride 102
Carbon Dioxide 25
BUN 6 L
Creatinine 0.6
Glucose 110 H
Calcium 7.4 L
Total Bilirubin 1.2
AST 66 H
ALT 17
Alkaline Phosphatase 87
Vital Signs:
Vital Signs
Temp Pulse Resp BP Pulse Ox
97.4 F 62 16 82/55 95
04/19/24 06:57 03/15/24 06:57 03/15/24 06:57 03/15/24 02:25 03/15/24 06:57
I&O
03/14/24 03/15/24 03/16/24
06:59 06:59 06:59
Intake Total 1370 / 1370 2340.8 / 2340.8
Output Total 550 / 550 2099 / 2100
Balance 820 / 820 240.8 / 240.8
Review of Systems
-
History Source: Patient
All other systems: Reviewed and negative
[2024-03-15 08:14] LABS: Magnesium 1.7 mg/dl (1.6-2.3)
[2024-03-15] MEDS: ROXICODONE 5 MG PO ×3 (08:26→17:56)
[2024-03-15] MEDS: RITALIN 10 MG PO ×3 (08:30→17:01)
[2024-03-15] MEDS: ProAmatine 5 MG PO ×3 (08:30→17:56)
[2024-03-15] MEDS: XIFAXAN 550 MG PO ×2 (08:31→20:20)
[2024-03-15] MEDS: ZANAFLEX 4 MG PO ×2 (08:31→20:20)
[2024-03-15] MEDS: DUPHALAC/CHRONULAC 20 GRAMS PO ×3 (08:31→22:33)
[2024-03-15] MEDS: KCL 40 MEQ PO ×2 (08:32→20:19)
[2024-03-15] MEDS: LASIX 40 MG PO (08:32)
[2024-03-15] MEDS: NSS (PRESERVATIVE FREE) 10 ML IV ×2 (08:33→20:19)
[2024-03-15] MEDS: PROTONIX IV 40 MG IV ×2 (08:33→20:20)
--- NOTE | 2024-03-15 09:29 | W.PN.GI.CBS2 ---
Today's Communication / Plan
-
Needs dopplers to assess vasculature, as not commented/performed with initial US. Hypotensive but asymptomatic this morning, midodrine dose being increased. AM hemoglobin pending, no reports of bleeding overnight.
Assessment / Plan
-
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
be anemic.
#Anemia-- 2/2 bleeding PHG
-s/p EGD on 03/13: actively oozing PHG in fundus treated with APC. mild nonbleeding GAVE. small grade 1 EV, nonobstructing schatzki ring, small HH
-Hgb 7.5 yesterday, AM labs pending
-Continue octreotide gtt day 2/3, SBP ppx day 3, PPI
#Decompensated EtoH Cirrhosis c/b hepatic encephalopathy, PHG, esophageal varices, abdominal ascites
-MELD 3.0 = 19
-Ascites in 2019 requiring paracentesis, now with recurrence; s/p IR paracentesis with removal of 4.2L, ascitic fluid study with high SAAG, low protein c/w portal HTN. No evidence of SBP. Does not meet criteria for primary SBP prophylaxis
-started on Lasix, if BP tolerates, will start on Aldactone 50 mg daily, however, she was hypotensive this morning, midodrine dose is being increased
-Abdominal US w/ cirrhosis, large-volume ascites-- vasculature not commented on. Need to obtain additional imaging to rule PVT, will check dopplers
-Previously did not require diuretics-- agree with initiation of 40mg lasix; should ideally be on aldactone as well, will see how she
-Continue lactulose and rifaximin
-EV- grade 1 EV on EGD, not amenable to banding. Recommend reintroduction of Carvediol as outpatient to see if she tolerates it, however, she is currently hypotensive requiring uptitration of midodrine, so do not think this will be possible
-AFP 2.08- needs repeat q6 months for HCC screening
-no role for checking ammonia
-Daily MELD-3.0 labs
#Dysphagia- functional vs. mechanical
-nonobstructing schatzki ring and small HH on EGD-- discussed with patient that would not recommend dilation given esophageal varices
-discussed lifestyle/dietary modifications, patient expressed understanding
#Hx Rectal Neuroendocrine Ca
#Hx Colon polyps
-Outpatient follow-up [facility] Dr. Rand for surveillance colonoscopy
Subjective
Subjective
Date of Service: March 15, 2024
Patient seen and examined at the bedside. Hypotensive this morning, but patient asymptomatic. Offers no complaints. AM hemoglobin pending. She did not have any BMs overninght.
Objective
Data Reviewed
Laboratory Data:
Laboratory Results
03/15/24 02:35
Laboratory Results
PT 19.0 Sec (11.4-14.6) H 03/12/24 19:06
INR 1.61 03/12/24 19:06
Magnesium 1.7 mg/dl (1.6-2.3) 03/15/24 02:35
Total Bilirubin 1.2 mg/dl (0.2-1.3) 03/15/24 02:35
AST 66 U/L (14-36) H 03/15/24 02:35
ALT 17 U/L (0-35) 03/15/24 02:35
Alkaline Phosphatase 87 U/L (38-126) 03/15/24 02:35
Lipase 30 U/L (23-300) 03/12/24 16:58
Vital Signs and I&O:
Vital Signs
Temp Pulse Resp BP Pulse Ox
97.4 F 75 16 81/53 95
03/15/24 06:57 03/15/24 08:32 03/15/24 06:57 03/15/24 08:32 03/15/24 06:57
I&O
03/14/24 03/15/2424
06:59 06:59 06:59
Intake Total 1370 / 1370 2340.8 / 2340.8
Output Total 550 / 550 2099 / 2099
Balance 820 / 820 240.8 / 240.8
Physical Exam
Physical Exam
HEENT: Anicteric and Moist mucous membranes
Cardiology: Normal Sinus Rhythm, S1 and S2
Pulmonary: Clear
GI: Soft, Distended, Non Tender and Other (+tympanic to percussion)
Extremities: Edema and No Edema
Neuro: Non Focal
No asterixes
[2024-03-15] MEDS: MYLICON 80 MG PO ×2 (10:24→20:25)
[2024-03-15 11:15] LABS: % Basophils 0.8 % (0-2); % Eosinophils 5.8 % (0-6); % Immature Granulocytes 0.4 % (0-0.5); % Lymphocytes 25.7 % (20.5-51.1); % Monocytes 9.4 % (1.7-9.3); % Neutrophils 57.9 % (42.2-75.2); Absolute Eosinophils 0.3 10^3/uL (0-0.7); Absolute Lymphocytes 1.4 10^3/uL (1.2-3.4); Absolute Monocytes 0.5 10^3/uL (0.1-0.6); Absolute Neutrophils 3.1 10^3/uL (1.4-6.5); Hematocrit 26.5 % (37.0-47.0); Hemoglobin 8.6 g/dL (12.0-16.0); Mean Corp Hgb Conc. 32.5 g/dL (33.0-37.0); Mean Corpuscular Hgb 25.7 pg (27.0-31.0); Mean Corpuscular Volume 79.1 fL (81.0-99.0); Nucleated Red Blood Cells % 0 %; Platelet Count 128 10^3/uL (130-400); Red Blood Cell Count 3.35 10^6/uL (4.20-5.40); White Blood Cell Count 5.3 10^3/uL (4.8-10.8)
--- NOTE | 2024-03-15 12:23 | CM ---
Reviewed chart. Met with Mrs. Bass to review discharge plans. She states she is feeling a little better. We reviewed [facility] and she will think about [facility]. She feels she may need [facility] Services. Telephone call to [facility]
to make the referral. sent referral. Prior to admission she resides with her spouse in a two story home with two steps and a ramp. Prior to admission she was ambulating with a walker. She has a stair glide to get to the second floor. She has a
stair glide, walker and single point cane at home. Will need to see her current functional level to see if she will have any skilled care needs. Medical work-up in progress. The discharge plan is to return home with her spouse and [facility] when medically stable.
[2024-03-15] MEDS: AMBIEN 10 MG PO (22:33)
[2024-03-15] MEDS: LATUDA 60 MG PO (22:33)
[2024-03-16] VITALS (13 sets, daily range): BP systolic 73–121; BP diastolic 49–75; PULSE 63–72; BMI 23.4
[2024-03-16] MEDS: MAXIPIME 2000 MG IV ×3 (00:05→16:07)
[2024-03-16] MEDS: ROXICODONE 5 MG PO ×4 (00:05→17:54)
[2024-03-16] MEDS: STERILE WATER FOR INJECTION 10 ML IV ×3 (00:05→16:07)
[2024-03-16 05:57] LABS: % Basophils 0.3 % (0-2); % Eosinophils 6.8 % (0-6); % Immature Granulocytes 0.3 % (0-0.5); % Lymphocytes 38.8 % (20.5-51.1); % Monocytes 9.2 % (1.7-9.3); % Neutrophils 44.6 % (42.2-75.2); Absolute Eosinophils 0.2 10^3/uL (0-0.7); Absolute Lymphocytes 1.1 10^3/uL (1.2-3.4); Absolute Monocytes 0.3 10^3/uL (0.1-0.6); Absolute Neutrophils 1.3 10^3/uL (1.4-6.5); Hematocrit 23.7 % (37.0-47.0); Hemoglobin 7.5 g/dL (12.0-16.0); Mean Corp Hgb Conc. 31.6 g/dL (33.0-37.0); Mean Corpuscular Hgb 26.2 pg (27.0-31.0); Mean Corpuscular Volume 82.9 fL (81.0-99.0); Mean Platelet Volume 11.1 fL (7.4-10.4); Nucleated Red Blood Cells % 0 %; Platelet Count 107 10^3/uL (130-400); Red Blood Cell Count 2.86 10^6/uL (4.20-5.40); White Blood Cell Count 2.9 10^3/uL (4.8-10.8)
[2024-03-16 05:59] LABS: ALT (SGPT) 19 U/L (0-35); AST (SGOT) 62 U/L (14-36); Albumin 1.8 g/dl (3.5-5.0); Alkaline Phosphatase 92 U/L (38-126); Blood Urea Nitrogen 7 mg/dl (7-17); Calcium 7.4 mg/dl (8.4-10.2); Carbon Dioxide 26 mmol/L (22-30); Chloride 106 mmol/L (98-107); Estimated Creatinine Clearance 67 ml/min; Glucose 90 mg/dl (70-99); Potassium 3.7 mmol/L (3.5-5.1); Sodium 132 mmol/L (135-145); Total Bilirubin 1.3 mg/dl (0.2-1.3); Total Protein 3.9 g/dl (6.3-8.2); eGFR > 60.00
[2024-03-16] MEDS: SANDOSTATIN 500.600000000000023 MCG IV (06:02)
--- NOTE | 2024-03-16 08:10 | W.PN.HOSP.TC ---
Today's Communication/Plan
-
Topical hydrocortisone
IV iron
increase midodrine
PT/OT
Monitor hemoglobin
Bowel regimen
Assessment / Plan
Assessment / Plan
Gen-AAOx3, NAD
HEENT-NC, AT, anicteric, clear oral mm
Neck-supple
CV-reg, no M, +S1/S2
Lungs-clear B/L
Abd-soft, NT, less distended today
Ext-1+ bilateral ankle edema
Musculoskeletal-no cyanosis, clubbing
Skin-warm and dry
Neuro-grossly non-focal
Psych-calm, cooperative
Acute on chronic anemia -hemoglobin improved to 8.4 after 1 unit of transfusion on 03/13, hemoglobin down to 7.5 earlier this morning. Has not had any bowel movement so far in the hospital. Etiology of acute anemia is likely acute blood loss anemia
due to GI bleed. Bleeding portal hypertensive gastropathy noted on EGD.
Octreotide infusion started 03/13, stop date 03/16. Continue IV Protonix.
Blood work consistent with iron deficiency anemia, likely due to GI blood loss. IV iron ordered.
Symptomatic ascites -due to decompensated hepatic cirrhosis. Paracentesis completed on 03/13 by IR, 4.2 L of fluid removed. No signs of SBP.
Furosemide initiated. Add spironolactone if blood pressure tolerates. Currently she is hypotensive however.
Dysphagia -possibly due to nonobstructing Schatzki's ring as noted on EGD. Not dilated due to concern over bleeding from esophageal varices. Diet changed to soft, bite sized. Would continue on discharge. Discussed with patient. She was able to
tolerate soft foods yesterday such as bananas, pancakes, yogurt.
Alcoholic cirrhosis -continue lactulose, rifaximin. She normally follows up with Dr. Rand, however has not seen her in over a year as she was busy taking care of her at home.
Pancytopenia/leukopenia -likely related to cirrhosis. Monitor for now.
Hyponatremia -likely due to cirrhosis, hypotension induced ADH excess. Will try to improve blood pressure, increase midodrine dose. Sodium stable at 132.
Hypotension -most likely due to cirrhosis. Increase midodrine to 10 mg 3 times daily. She has no symptoms of hypotension.
Hypokalemia -improved.
History of esophageal varices -grade 1. Small esophageal varices noted on EGD from 03/13. Too small to be banded.
Portal hypertensive gastropathy
QT prolongation
Chronic pain syndrome/chronic opiate dependence
COPD without exacerbation
History of alcohol use disorder -has been sober for the past 5 years.
History of colon polyps
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 Last colonoscopy was September 2021. It showed nonbleeding internal hemorrhoids, diverticulosis in the sigmoid colon, 2 mm rectal polyp. Diffuse nonbleeding colonic angiodysplastic
lesions in the cecum and ascending colon. Small lipoma in the ascending colon.
Full code
PT/OT
Anticipated Discharge: 24 - 48 hours
Subjective/Interval History
-
Date of Service: March 16, 2024
Patient seen and examined. Complaining of itchiness on her back between her scapula.
Objective Data
-
Labs:
Laboratory Results
03/16/24
05:16
WBC 2.9 L
Hgb 7.5 L
Hct 23.7 L
Plt Count 107 L
Sodium 132 L
Potassium 3.7
Chloride 106
Carbon Dioxide 26
BUN 7
Creatinine 0.6
Glucose 90
Calcium 7.4 L
Total Bilirubin 1.3
AST 62 H
ALT 19
Alkaline Phosphatase 92
Vital Signs:
Vital Signs
Temp Pulse Resp BP Pulse Ox
97.5 F 61 20 82/49 92
03/16/24 05:07 03/16/24 06:00 03/16/24 05:07 03/16/24 05:06 03/16/24 05:07
I&O
03/15/24 03/16/24 03/17/24
06:59 06:59 06:59
Intake Total 2340.8 / 2340.8 2039
Output Total 2099 / 2099 1000 / 1000
Balance 240.8 / 240.8 104 / 0
Review of Systems
-
History Source: Patient
All other systems: Reviewed and negative
[2024-03-16] MEDS: ZANAFLEX 4 MG PO ×2 (09:15→19:57)
[2024-03-16] MEDS: KCL 40 MEQ PO ×2 (09:16→19:57)
[2024-03-16] MEDS: XIFAXAN 550 MG PO ×2 (09:16→19:57)
[2024-03-16] MEDS: ProAmatine 10 MG PO ×3 (09:17→17:54)
[2024-03-16] MEDS: DUPHALAC/CHRONULAC 20 GRAMS PO ×3 (09:18→23:06)
[2024-03-16] MEDS: LASIX 40 MG PO (09:18)
[2024-03-16] MEDS: RITALIN 10 MG PO ×3 (09:18→16:06)
[2024-03-16] MEDS: PROTONIX IV 40 MG IV ×2 (09:22→19:57)
[2024-03-16] MEDS: MYLICON 80 MG PO (09:22)
[2024-03-16] MEDS: NSS (PRESERVATIVE FREE) 10 ML IV ×2 (09:23→19:57)
[2024-03-16] MEDS: RELISTOR 12 MG SC (09:24)
[2024-03-16] MEDS: HYDROCORTISONE 1% CREAM 1 APPLIC TOPICAL ×2 (12:18→21:27)
[2024-03-16] MEDS: MIRALAX 17 GRAMS PO (13:53)
--- NOTE | 2024-03-16 14:05 | W.PN.GI.CBS2 ---
Today's Communication / Plan
-
continue current meds
para PRN
Assessment / Plan
-
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
be anemic.
#Anemia-- 2/2 bleeding PHG
-s/p EGD on 03/13: actively oozing PHG in fundus treated with APC. mild nonbleeding GAVE. small grade 1 EV, nonobstructing schatzki ring, small HH
-Hgb stable, slight drop today but no further bleeding
-will DC octreotide today
-SBP ppx day 4 of 7, PPI
#Decompensated EtoH Cirrhosis c/b hepatic encephalopathy, PHG, esophageal varices, abdominal ascites
-MELD 3.0 = 19
-Ascites in 2019 requiring paracentesis, now with recurrence; s/p IR paracentesis with removal of 4.2L, ascitic fluid study with high SAAG, low protein c/w portal HTN. No evidence of SBP. Does not meet criteria for primary SBP prophylaxis, para PRN
-started on Lasix, if BP tolerates, will start on Aldactone 50 mg daily, however, she is still hypotensive midodrine dose is being increased
-Abdominal US w/ cirrhosis, large-volume ascites-- 03/15 dopplers neg
-Previously did not require diuretics-- agree with initiation of 40mg lasix; should ideally be on aldactone as well, will see how she
-Continue lactulose and rifaximin
-EV- grade 1 EV on EGD, not amenable to banding. Recommend reintroduction of Carvediol as outpatient to see if she tolerates it, however, she is currently hypotensive requiring uptitration of midodrine, so do not think this will be possible
-AFP 2.08- needs repeat q6 months for HCC screening along with US
-Continue lactulose - titrate for 3 to 4 BM's, on Xifaxan
#Dysphagia- functional vs. mechanical
-nonobstructing schatzki ring and small HH on EGD-- discussed with patient that would not recommend dilation given esophageal varices
-discussed lifestyle/dietary modifications, patient expressed understanding
#Hx Rectal Neuroendocrine Ca
#Hx Colon polyps
-Outpatient follow-up wt Dr. Stock for surveillance colonoscopy
will s/o and will be available as needed, f/u with DR. STOCK as OP
Subjective
Subjective
Date of Service: March 16, 2024
No further bleeding and hemoglobin slight drop but no bowel movement or melena reported
Objective
Data Reviewed
Laboratory Data:
Laboratory Results
03/16/24 05:16
03/16/24 05:16
Laboratory Results
PT 19.0 Sec (11.4-14.6) H 03/12/24 19:06
INR 1.61 03/12/24 19:06
Magnesium 1.7 mg/dl (1.6-2.3) 03/15/24 02:35
Total Bilirubin 1.3 mg/dl (0.2-1.3) 03/16/24 05:16
AST 62 U/L (14-36) H 03/16/24 05:16
ALT 19 U/L (0-35) 03/16/24 05:16
Alkaline Phosphatase 92 U/L (38-126) 03/16/24 05:16
Lipase 30 U/L (23-300) 03/12/24 16:58
Vital Signs and I&O:
Vital Signs
Temp Pulse Resp BP Pulse Ox
97.5 F 71 16 83/53 94
03/16/24 12:38 03/16/24 13:46 03/16/24 12:38 03/16/24 13:53 03/16/24 12:38
I&O
03/15/24 03/16/24 03/17/24
06:59 06:59 06:59
Intake Total 2340.8 / 2340.8 2039 / 2039 420 / 420
Output Total 2099 / 2099 1000 / 1000
Balance 240.8 / 240.8 1040 / 0 420 / 420
Physical Exam
Physical Exam
Cardiology: Normal Sinus Rhythm
Pulmonary: Clear
GI: Soft, Distended, Non Tender and Normal Bowel Sounds
[2024-03-16] MEDS: FERRLECIT 110 MG IV (14:50)
--- NOTE | 2024-03-16 19:29 | PTCARENOTE ---
Pt reports feeling very tired today, OOB for lunch and dinner and worked with PT, she is weak and deconditioned, not sure how she will do at home at this point. SBP 72-124, pt asymptomatic with low BP's. Pt has not yet had a BM inspite of multiple
medications. Pt eating 25-50% of her small meals only. Telemetry shows sinus rhythm.
[2024-03-16] MEDS: AMBIEN 10 MG PO (23:06)
[2024-03-16] MEDS: LATUDA 60 MG PO (23:06)
[2024-03-17] MEDS: STERILE WATER FOR INJECTION 10 ML IV ×2 (00:25→09:15)
[2024-03-17] MEDS: MAXIPIME 2000 MG IV ×2 (00:25→09:14)
[2024-03-17] MEDS: ROXICODONE 5 MG PO ×2 (00:25→06:12)
[2024-03-17 04:52] VITALS: BP 95/55
[2024-03-17 06:00] VITALS: BMI 23.4
[2024-03-17 06:22] LABS: % Basophils 0.8 % (0-2); % Eosinophils 6.8 % (0-6); % Immature Granulocytes 0.2 % (0-0.5); % Lymphocytes 30.4 % (20.5-51.1); % Monocytes 9.1 % (1.7-9.3); % Neutrophils 52.7 % (42.2-75.2); Absolute Eosinophils 0.4 10^3/uL (0-0.7); Absolute Lymphocytes 1.6 10^3/uL (1.2-3.4); Absolute Monocytes 0.5 10^3/uL (0.1-0.6); Absolute Neutrophils 2.8 10^3/uL (1.4-6.5); Hematocrit 25.1 % (37.0-47.0); Hemoglobin 7.9 g/dL (12.0-16.0); Mean Corp Hgb Conc. 31.5 g/dL (33.0-37.0); Mean Corpuscular Hgb 26.2 pg (27.0-31.0); Mean Corpuscular Volume 83.4 fL (81.0-99.0); Mean Platelet Volume 10.2 fL (7.4-10.4); Nucleated Red Blood Cells % 0 %; Platelet Count 116 10^3/uL (130-400); Red Blood Cell Count 3.01 10^6/uL (4.20-5.40); Red Cell Dist. Width 20.2 % (11.5-14.5); White Blood Cell Count 5.3 10^3/uL (4.8-10.8)
[2024-03-17 06:33] LABS: ALT (SGPT) 17 U/L (0-35); AST (SGOT) 63 U/L (14-36); Albumin 1.8 g/dl (3.5-5.0); Alkaline Phosphatase 98 U/L (38-126); Blood Urea Nitrogen 7 mg/dl (7-17); Calcium 7.9 mg/dl (8.4-10.2); Carbon Dioxide 24 mmol/L (22-30); Chloride 104 mmol/L (98-107); Estimated Creatinine Clearance 67 ml/min; Glucose 112 mg/dl (70-99); Potassium 3.9 mmol/L (3.5-5.1); Sodium 130 mmol/L (135-145); Total Protein 3.9 g/dl (6.3-8.2); eGFR > 60.00
[2024-03-17 06:56] VITALS: BP 93/56
--- NOTE | 2024-03-17 09:04 | W.PN.HOSP.TC ---
Today's Communication/Plan
-
Bowel regimen
Discharge
Assessment / Plan
Assessment / Plan
Gen-AAOx3, NAD
HEENT-NC, AT, anicteric, clear oral mm
Neck-supple
CV-reg, no M, +S1/S2
Lungs-clear B/L
Abd-soft, NT, less distended today
Ext-1+ bilateral ankle edema
Musculoskeletal-no cyanosis, clubbing
Skin-warm and dry
Neuro-grossly non-focal
Psych-calm, cooperative
Acute on chronic anemia -hemoglobin improved to 8.4 after 1 unit of transfusion on 03/13, hemoglobin stable at 7.9 today. Has not had any bowel movement so far in the hospital. Etiology of acute anemia is likely acute blood loss anemia due to GI
bleed. Bleeding portal hypertensive gastropathy noted on EGD.
Octreotide infusion started 03/13, stop date 03/16. Change Protonix to oral twice daily.
Blood work consistent with iron deficiency anemia, likely due to GI blood loss. IV iron ordered. Oral iron on discharge.
Symptomatic ascites -due to decompensated hepatic cirrhosis. Paracentesis completed on 03/13 by IR, 4.2 L of fluid removed. No signs of SBP. On SBP prophylaxis day 5 of 7. Will change to oral antibiotics on discharge.
Furosemide initiated. Add spironolactone if blood pressure tolerates. Currently she is hypotensive however.
Dysphagia -possibly due to nonobstructing Schatzki's ring as noted on EGD. Not dilated due to concern over bleeding from esophageal varices. Diet changed to soft, bite sized. Would continue on discharge. Discussed with patient. She was able to
tolerate soft foods yesterday such as bananas, pancakes, yogurt.
Alcoholic cirrhosis -continue lactulose, rifaximin. She normally follows up with Dr. Rand, however has not seen her in over a year as she was busy taking care of her at home. She has an appointment to see Dr. Rand in March.
Pancytopenia/leukopenia -likely related to cirrhosis. Monitor for now.
Hyponatremia -likely due to cirrhosis, hypotension induced ADH excess. Will try to improve blood pressure, increase midodrine dose. Sodium stable at 130.
Hypotension -most likely due to cirrhosis. Continue midodrine 10 mg 3 times daily. She has no symptoms of hypotension.
Hypokalemia -improved.
History of esophageal varices -grade 1. Small esophageal varices noted on EGD from 03/13. Too small to be banded.
Portal hypertensive gastropathy
QT prolongation
Chronic pain syndrome/chronic opiate dependence
COPD without exacerbation
History of alcohol use disorder -has been sober for the past 5 years.
History of colon polyps
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 Last colonoscopy was September 2021. It showed nonbleeding internal hemorrhoids, diverticulosis in the sigmoid colon, 2 mm rectal polyp. Diffuse nonbleeding colonic angiodysplastic
lesions in the cecum and ascending colon. Small lipoma in the ascending colon.
Full code
PT/OT -Home health recommended.
Dispo -anticipate discharge home today. Will order VN. Outpatient follow-up. She has a walker at home.
32-minute spent in discharge process.
Anticipated Discharge: Today
Subjective/Interval History
-
Date of Service: March 17, 2024
Patient seen and examined. Still constipated. Denies lightheadedness. No other complaints.
Objective Data
-
Labs:
Laboratory Results
03/17/24
06:08
WBC 5.3
Hgb 7.9 L
Hct 25.1 L
Plt Count 116 L
Sodium 130 L
Potassium 3.9
Chloride 104
Carbon Dioxide 24
BUN 7
Creatinine 0.6
Glucose 112 H
Calcium 7.9 L
Total Bilirubin 1.0
AST 63 H
ALT 17
Alkaline Phosphatase 98
Vital Signs:
Vital Signs
Temp Pulse Resp BP Pulse Ox
98.1 F 64 18 93/56 90
03/17/24 06:57 03/17/24 07:00 03/17/24 06:57 03/17/24 06:56 03/17/24 06:57
I&O
03/16/24 03/17/24 03/18/24
06:59 06:59 06:59
Intake Total 2040 / 2040 1150 / 1150
Output Total 1000 / 1000
Balance 1040 / 1040 1150 / 1150
Review of Systems
-
History Source: Patient
All other systems: Reviewed and negative
[2024-03-17] MEDS: DULCOLAX 10 MG RECTAL (09:10)
[2024-03-17] MEDS: PROTONIX IV 40 MG IV (09:15)
[2024-03-17] MEDS: NSS (PRESERVATIVE FREE) 10 ML IV (09:15)
[2024-03-17] MEDS: LASIX 40 MG PO (09:16)
[2024-03-17] MEDS: KCL 40 MEQ PO (09:16)
[2024-03-17] MEDS: RITALIN 10 MG PO ×2 (09:16→11:44)
[2024-03-17] MEDS: ZANAFLEX 4 MG PO (09:16)
[2024-03-17] MEDS: DUPHALAC/CHRONULAC 20 GRAMS PO (09:17)
[2024-03-17] MEDS: XIFAXAN 550 MG PO (09:17)
[2024-03-17] MEDS: ProAmatine 10 MG PO ×2 (09:17→12:33)
[2024-03-17] MEDS: MIRALAX 17 GRAMS PO (09:17)
[2024-03-17] MEDS: HYDROCORTISONE 1% CREAM 1 APPLIC TOPICAL (09:18)
--- NOTE | 2024-03-17 09:22 | W.DS.TRANS ---
DC Summary - Public Health Nurse
-
Discharge Instructions:
Discharge Diagnosis/Procedures GI bleed, iron deficiency anemia, alcohol
induced cirrhosis, hyponatremia, constipation
Diet Other diet,Restrict fluids to 48 oz
Additional Diets Soft foods, bite sized
Activity With assistance
Driving Restrictions No driving
Bathing Restrictions None
Blood Work CBC, CMP next week with your primary care doctor
Other Services VN
Instructions:
Stand-Alone Forms:
Changes to Home Medications: No
Discharge Medications:
DC Medications w/original date entered in [employer]
rifaximin 550 mg tablet (Xifaxan) 550 mg PO BID Infection 07/31/19
lactulose 10 gram/15 mL oral solution 30 ml PO TID Constipation ##0 06/29/23
buprenorphine HCl 600 mcg buccal film (Belbuca) 600 mcg buccal BID Pain 06/30/23
lurasidone 60 mg tablet 60 mg PO HS Mental Health/Anxiety 06/30/23
methylphenidate HCl 10 mg tablet 10 mg PO TID ADHD 06/30/23
naloxegol 25 mg tablet (Movantik) 25 mg PO DAILY Constipation 06/30/23
oxycodone 5 mg tablet 5 mg PO Q6H Pain 06/30/23
tizanidine 4 mg tablet 4 mg PO BID Muscle Spasms 06/30/23
eszopiclone 2 mg tablet 2 mg PO HS 03/12/24
ferrous sulfate 325 mg (65 mg iron) tablet 325 mg PO Q OTHER DAY #30 tabs 03/17/24
furosemide 40 mg tablet 40 mg PO DAILY #30 tabs 03/17/24
midodrine 5 mg tablet 10 mg (2 x 5 mg) PO TID@0800,1300,1800 #180 tabs 03/17/24
pantoprazole 40 mg tablet,delayed release (Protonix) 40 mg PO BID #60 tabs 03/17/24
polyethylene glycol 3350 17 gram oral powder packet (HealthyLax) 17 g PO DAILY #0 ea 03/17/24
potassium chloride 20 mEq tablet,extended release(part/cryst) 20 meq PO BID #30 tabs 03/17/24
sulfamethoxazole 800 mg-trimethoprim 160 mg tablet (Bactrim DS) 1 tab PO BID #6 tabs 03/17/24
Home Medication Changes
Pending Results: No
[2024-03-17 10:01] VITALS: BP 99/62
[2024-03-17] MEDS: PREVNAR 20 0.5 ML IM (11:44)
[2024-03-17] MEDS: FLUZONE HIGH-DOSE QUAD 2023-24 0.699999999999999956 ML IM (11:45)
[2024-03-17 12:11] VITALS: BP 102/61
[2024-03-17] MEDS: ROXICODONE PO (12:21)
[2024-03-17 12:30] VITALS: BP 102/60
[2024-03-17] MEDS: FERRLECIT 110 MG IV (12:34)
--- NOTE | 2024-03-17 14:21 | PTCARENOTE ---
Pt had moderate bowel movement. Pt walked 100 feet in halls, unsteady gait, plan for PT/OT and VN follow up at home. Discharge instructions reviewed with pt regarding medications and their possible side effects, activity and driving restrictions,
diet, reporting cares and concerns and follow up appt's and lab tests. Very good understanding verbalized. Pt escorted out via wheelchair and pt discharged to home. Materials faxed to VN.
== END 2024-03-17 14:15 | disposition home health service (06) | DRG 432 ==
LOC: IVU 22:35
PROVIDERS: Clinical Nurse Specialist Family Health; Emergency Medicine; Nurse Practitioner Gerontology; Radiology Vascular & Interventional Radiology; ADMITTING PHYSICIAN Hospitalist; ATTENDING PHYSICIAN Hospitalist; EMERGENCY PHYSICIAN Emergency Medicine; FAMILY PHYSICIAN Family Medicine; OTHER PHYSICIAN Internal Medicine
PROC: 30233N1 Transfusion of Nonautologous Red Blood Cells into Peripheral Vein, Percutaneous Approach (ICD-10-PCS; 2024-03-13)
PROC: 0W9G3ZX Drainage of Peritoneal Cavity, Percutaneous Approach, Diagnostic (ICD-10-PCS; 2024-03-13)
PROC: 0D568ZZ Destruction of Stomach, Via Natural or Artificial Opening Endoscopic (ICD-10-PCS; 2024-03-13)
PROC: 3E0234Z Introduction of Serum, Toxoid and Vaccine into Muscle, Percutaneous Approach (ICD-10-PCS; 2024-03-17)
PROC: 3E02340 Introduction of Influenza Vaccine into Muscle, Percutaneous Approach (ICD-10-PCS; 2024-03-17)
DX: K70.31 Alcoholic cirrhosis of liver with ascites (principal); I85.11 Secondary esophageal varices with bleeding; K76.6 Portal hypertension; D61.818 Other pancytopenia; D62 Acute posthemorrhagic anemia; E87.1 Hypo-osmolality and hyponatremia; F11.20 Opioid dependence, uncomplicated; G93.40 Encephalopathy, unspecified; D50.9 Iron deficiency anemia, unspecified; E78.00 Pure hypercholesterolemia, unspecified; I50.9 Heart failure, unspecified; I11.0 Hypertensive heart disease with heart failure; J44.9 Chronic obstructive pulmonary disease, unspecified; K21.9 Gastro-esophageal reflux disease without esophagitis; K31.819 Angiodysplasia of stomach and duodenum without bleeding; K58.0 Irritable bowel syndrome with diarrhea; M48.00 Spinal stenosis, site unspecified; K76.82 Hepatic encephalopathy; F41.9 Anxiety disorder, unspecified; F32.A Depression, unspecified; G89.4 Chronic pain syndrome; K44.9 Diaphragmatic hernia without obstruction or gangrene; K22.2 Esophageal obstruction; D72.819 Decreased white blood cell count, unspecified; F10.11 Alcohol abuse, in remission; D3A.8 Other benign neuroendocrine tumors; E87.6 Hypokalemia; I95.9 Hypotension, unspecified; K31.89 Other diseases of stomach and duodenum; K59.03 Drug induced constipation; T40.2X5A Adverse effect of other opioids, initial encounter; F90.9 Attention-deficit hyperactivity disorder, unspecified type; Z88.0 Allergy status to penicillin; Z87.891 Personal history of nicotine dependence; Z87.442 Personal history of urinary calculi; Z82.0 Family history of epilepsy and other diseases of the nervous system; Z86.010 Personal history of colon polyps; Z23 Encounter for immunization
CPT/HCPCS: 88305; 49083; 71046; 76705; 80053; 82042; 82105; 82150; 82607; 82728; 82746; 83540; 83550; 83615; 83690; 83735; 83880; 84157; 84484; 85014; 85018; 85025; 85045; 85610; 86803; 86850; 86900; 86901; 86920; 87015; 87070; 87205; 88112; 89051; 90677; 93005; 93975; 97110; 97162; 99285; G0009; J2916; P9016

== ENCOUNTER → 2024-03-25 12:30 | Outpatient (REF) | payer MEDICARE, OTHER, SELFPAY ==
[2024-03-25 15:31] LABS: % Basophils 0.7 % (0-2); % Eosinophils 2.9 % (0-6); % Immature Granulocytes 0.2 % (0-0.5); % Lymphocytes 28.1 % (20.5-51.1); % Monocytes 7.4 % (1.7-9.3); % Neutrophils 60.7 % (42.2-75.2); Absolute Eosinophils 0.2 10^3/uL (0-0.7); Absolute Lymphocytes 1.7 10^3/uL (1.2-3.4); Absolute Monocytes 0.4 10^3/uL (0.1-0.6); Absolute Neutrophils 3.6 10^3/uL (1.4-6.5); Hemoglobin 9.4 g/dL (12.0-16.0); Mean Corp Hgb Conc. 30.3 g/dL (33.0-37.0); Mean Corpuscular Hgb 27.1 pg (27.0-31.0); Mean Corpuscular Volume 89.3 fL (81.0-99.0); Mean Platelet Volume 11.7 fL (7.4-10.4); Nucleated Red Blood Cells % 0 %; Platelet Count 162 10^3/uL (130-400); Red Blood Cell Count 3.47 10^6/uL (4.20-5.40); Red Cell Dist. Width 23.5 % (11.5-14.5); White Blood Cell Count 5.9 10^3/uL (4.8-10.8)
[2024-03-25 15:50] LABS: Anisocytosis 1+; Normal RBC Morphology No; Ovalocytes 1+
[2024-03-25 15:52] LABS: Poikilocytosis 1+
[2024-03-25 15:53] LABS: ALT (SGPT) 23 U/L (0-35); AST (SGOT) 62 U/L (14-36); Albumin 2.5 g/dl (3.5-5.0); Alkaline Phosphatase 114 U/L (38-126); Blood Urea Nitrogen 7 mg/dl (7-17); Calcium 8.3 mg/dl (8.4-10.2); Carbon Dioxide 29 mmol/L (22-30); Chloride 102 mmol/L (98-107); Glucose 177 mg/dl (70-99); Potassium 4.1 mmol/L (3.5-5.1); Sodium 133 mmol/L (135-145); eGFR > 60.00
[2024-03-25 15:54] LABS: Macrocytosis Slight
[2024-03-25 15:56] LABS: Schistocytes Slight; Target Cells 1+
== END ==
LOC: CLAB 12:30
PROVIDERS: ATTENDING PHYSICIAN Family Medicine
DX: D64.9 Anemia, unspecified (principal)
CPT/HCPCS: 36415; 80053; 85025

== ENCOUNTER → 2024-04-05 07:42 | Outpatient (REF) | payer MEDICARE, OTHER, SELFPAY ==
[2024-04-05 08:35] VITALS: BP 120/68; BP_SYST 58
[2024-04-05 09:38] VITALS: BP 113/60; BP 113/62; BP_SYST 55
[2024-04-05 10:23] LABS: Body Fluid Mononuclear 73.4 %; Body Fluid Polymorphonuclear 26.6 %; Body Fluid WBC 98 /CUMM
[2024-04-05 10:28] LABS: Body Fluid Second Tech CMB
== END ==
LOC: RADI 07:42
PROVIDERS: ATTENDING PHYSICIAN Nurse Practitioner Family; FAMILY PHYSICIAN Family Medicine
DX: R18.8 Other ascites (principal)
CPT/HCPCS: 49083; 87015; 87070; 87205; 89051

== ENCOUNTER → 2024-06-25 06:26 | Day surgery (SDC) | payer MEDICARE, SELFPAY | LOC: GI 06:26 | PROVIDERS: ATTENDING PHYSICIAN Internal Medicine Gastroenterology | DX: D50.9 Iron deficiency anemia, unspecified (principal); K22.2 Esophageal obstruction; K76.6 Portal hypertension; K74.60 Unspecified cirrhosis of liver; I85.10 Secondary esophageal varices without bleeding; K31.89 Other diseases of stomach and duodenum | CPT/HCPCS: 43255; 43244 ==

== ENCOUNTER → 2024-07-17 06:18 | Day surgery (SDC) | payer MEDICARE, SELFPAY | LOC: GI 06:18 | PROVIDERS: ATTENDING PHYSICIAN Internal Medicine Gastroenterology | DX: K31.811 Angiodysplasia of stomach and duodenum with bleeding (principal); I85.00 Esophageal varices without bleeding; K44.9 Diaphragmatic hernia without obstruction or gangrene; K76.6 Portal hypertension; K31.89 Other diseases of stomach and duodenum | CPT/HCPCS: 43255 ==

== ENCOUNTER 2025-01-24 06:30 | Day surgery (SDC) | payer MEDICARE, SELFPAY | END 2025-01-24 13:40 | disposition home or self-care (01) | LOC: GI 06:30 | PROVIDERS: ATTENDING PHYSICIAN Internal Medicine Gastroenterology | DX: K74.60 Unspecified cirrhosis of liver (principal); K31.819 Angiodysplasia of stomach and duodenum without bleeding; I85.10 Secondary esophageal varices without bleeding | CPT/HCPCS: 43255 ==

== ENCOUNTER → 2025-04-27 12:55 | Outpatient (REF) | payer MEDICARE, SELFPAY | LOC: PAVMRI 12:55 | PROVIDERS: ATTENDING PHYSICIAN Physician Assistant Surgical; FAMILY PHYSICIAN Family Medicine | DX: M54.16 Radiculopathy, lumbar region (principal) | CPT/HCPCS: 72148 ==

== ENCOUNTER → 2025-06-26 11:58 | Outpatient (REF) | payer MEDICARE, SELFPAY | LOC: RCS 11:58 | PROVIDERS: ATTENDING PHYSICIAN Internal Medicine Cardiovascular Disease; FAMILY PHYSICIAN Family Medicine | DX: Z01.810 Encounter for preprocedural cardiovascular examination (principal) | CPT/HCPCS: 78452; 93017; A9500; J2785 ==